=== PATIENT | female | born 1965 | race Caucasian/White ===

== ENCOUNTER → 2016-08-12 | Outpatient (CLI) | payer BC ==
[~2016-08-12] MED LIST: ALBUAER2 INH; IBUP-103 PO; NORE-38 PO
== END | disposition home or self-care (01) ==
LOC: C.PAPS 13:57
PROVIDERS: ATTEND Obstetrics & Gynecology
DX: Z01.419 Encounter for gynecological examination (general) (routine) without abnormal findings (principal)

== ENCOUNTER → 2017-04-23 | Outpatient (CLI) | payer BC ==
--- NOTE | 2017-04-23 14:56 | DIAGNOSTIC IMAGING REPORT ---
CHEST 2 VIEWS ROUTINE CLINICAL HISTORY: R/O SARWIDOSIS dysphagia COMPARISON STUDY: No previous studies for comparison. FINDINGS: The bones soft tissues and hemidiaphragms are normal. The cardiomediastinal silhouette is normal. The lungs are clear. The pulmonary vasculature is normal. IMPRESSION: Negative chest. The above report was generated using voice recognition software. It may contain grammatical, syntax or spelling errors. Electronically signed by: Eric Maradiaga M.D. 04/23/2017 2:55 PM Dictated Date/Time: 04/23/2017 2:54 PM
== END | disposition home or self-care (01) ==
LOC: C.RAD1850 14:38
PROVIDERS: ATTEND Ophthalmology
DX: D86.9 Sarcoidosis, unspecified (principal)

== ENCOUNTER → 2017-06-25 | Outpatient (CLI) | payer BC, OTHER ==
--- NOTE | 2017-06-25 08:52 | DIAGNOSTIC IMAGING REPORT ---
LEFT SHOULDER 3 VIEWS HISTORY: LEFT SHOULDER PAIN COMPARISON: None. FINDINGS: There is no fracture or dislocation. Soft tissues are unremarkable. The left clavicle is intact. 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 IMPRESSION: No fracture or dislocation within the left shoulder. Electronically signed by: Ean Garcia M.D. 06/25/2017 8:51 AM Dictated Date/Time: 06/25/2017 8:46 AM
== END | disposition home or self-care (01) ==
LOC: C.RDSM 08:33
PROVIDERS: ATTEND Internal Medicine
DX: M25.512 Pain in left shoulder (principal)

== ENCOUNTER → 2017-10-12 | Outpatient (CLI) | payer OTHER ==
[2017-10-12 11:18] LABS: FOLLICLE STIMULAT HORMONE 51.63 IU/L
== END | disposition home or self-care (01) ==
LOC: C.LAB1850 08:58
PROVIDERS: ATTEND Obstetrics & Gynecology
DX: N95.1 Menopausal and female climacteric states (principal)